=== PATIENT | male | born 1950 | race Caucasian/White ===

== ENCOUNTER 2021-03-30 03:55 | Emergency (ER) | payer OTHER ==
[~2021-03-30] VITALS: Ht 170.2 cm; Wt 76.2 kg
[2021-03-30 04:02] VITALS: BP_SYST 144
[2021-03-30 04:30] VITALS: BP_SYST 133
== END 2021-03-30 04:45 ==
LOC: SED 03:55
DX: Z02.89 Encounter for other administrative examinations (principal); I10 Essential (primary) hypertension; V99.XXXA Unspecified transport accident, initial encounter; Y93.89 Activity, other specified; Y92.89 Other specified places as the place of occurrence of the external cause; Y99.8 Other external cause status
CPT/HCPCS: 99283